=== PATIENT | male | born 1980 | race Hispanic/Latino ===

== ENCOUNTER 2021-10-20 05:46 | Day surgery (SDC) | payer BC ==
[2021-10-18 13:52] LABS: BASOPHILS % (AUTO) 0.6 % (0.0-5.0); EOSINOPHILS % (AUTO) 2.7 % (0.0-8.0); HEMATOCRIT 43.2 % (42-54); LYMPHOCYTES % (AUTO) 37.6 % (21.0-51.0); MEAN CORPUSCULAR HEMOGLOBIN 30.2 pg (27.0-33.0); MEAN CORPUSCULAR VOLUME 88.9 fL (79-99); MONOCYTES % (AUTO) 8.1 % (3.0-13.0); NEUTROPHILS % (AUTO) 50.8 % (40.0-77.0); PLATELET COUNT (AUTO) 234 K/uL (130-400); RED BLOOD CELL COUNT(AUTO) 4.86 MIL/uL (4.50-6.20); RED CELL DISTRIBUTION WIDTH 13.4 % (11.0-15.5)
[2021-10-18 14:08] LABS: POTASSIUM 3.4 mmol/L (3.5-5.1)
[2021-10-18 14:09] LABS: PROTHROMBIN TIME 10.9 SEC (9.6-11.6)
[2021-10-18 14:10] LABS: PARTIAL THROMBOPLASTIN TIME 29.4 SEC (26.3-35.5)
[2021-10-19 09:44] VITALS: BP 117/67
[2021-10-20] VITALS (18 sets, daily range): BP systolic 115–138; BP diastolic 65–95
[~2021-10-20] VITALS: Ht 175.3 cm; Wt 105.9 kg
[~2021-10-20 05:46] MED LIST: MULT200T12 PO; TESTOSTERONE IL; VITAMIN D PO
[2021-10-20] MEDS ORDERED: LACTATED RINGERS 1000ML 1,000 ML IV ONE (06:37)
[2021-10-20] MEDS: CEFAZOLIN SODIUM 1 GM VIAL ONE ×2 (07:02→07:55)
[2021-10-20] MEDS ORDERED: FAMOTIDINE 20MG VIAL IV ONE (07:05)
[2021-10-20] MEDS ORDERED: HYDROMORPHONE 1 MG INJ ONE ×2 (07:05→12:44)
[2021-10-20] MEDS ORDERED: MIDAZOLAM HCL 1 MG/ML 2ML VIAL ONE (07:10)
[2021-10-20] MEDS ORDERED: PROPOFOL 10 MG/ML 20ML VIAL IV ONE ×2 (07:10→11:35)
[2021-10-20] MEDS ORDERED: GLYCOPYRROLATE 1 MG/5 ML SYRINGE ONE (07:10)
[2021-10-20] MEDS ORDERED: PHENYLEPHRINE HCL 10 MG/ML 1ML VIAL IV ONE (07:10)
[2021-10-20] MEDS ORDERED: FENTANYL CITRATE PF 50 MCG/1 ML 2ML VIAL ONE ×3 (07:11→12:20)
[2021-10-20] MEDS ORDERED: EPINEPHRINE 1 MG/ML 30ML VIAL IJ ONE (07:15)
[2021-10-20] MEDS ORDERED: ROCURONIUM BROMIDE 10MG/1ML 5ML VL ONE (07:17)
[2021-10-20] MEDS ORDERED: LIDOCAINE 1%-EPI 1:100,000 20 ML VIAL IJ SCH (07:30)
[2021-10-20] MEDS ORDERED: ONDANSETRON 4MG INJ ONE (08:16)
[2021-10-20] MEDS ORDERED: OXYMETAZOLINE HCL SPRAY 15 ML BOTTLE ONE (08:18)
[2021-10-20] MEDS ORDERED: BACITRACIN 28.4 GM OINT TP ONE (08:29)
[2021-10-20] MEDS ORDERED: EPHEDRINE SULFATE 50 MG/ML AMPULE ONE (08:45)
[2021-10-20] MEDS ORDERED: ROCURONIUM 10MG/1ML SYR 10 MG/ML ML ONE (10:06)
[2021-10-20] MEDS ORDERED: NEOSTIGMINE 5MG/5ML SYR IV ONE (11:38)
== END 2021-10-20 14:10 | disposition home or self-care (01) ==
LOC: DAH 05:46
PROVIDERS: ATTEND Otolaryngology Plastic Surgery within the Head & Neck
DX: J34.3 Hypertrophy of nasal turbinates (principal); Z20.822 Contact with and (suspected) exposure to COVID-19; J34.2 Deviated nasal septum; J34.89 Other specified disorders of nose and nasal sinuses; M95.0 Acquired deformity of nose; E78.00 Pure hypercholesterolemia, unspecified; G47.33 Obstructive sleep apnea (adult) (pediatric); Z79.01 Long term (current) use of anticoagulants; Z79.899 Other long term (current) drug therapy; Z98.890 Other specified postprocedural states; Z87.891 Personal history of nicotine dependence
CPT/HCPCS: 20912; 30420; 36415; 71045; 80048; 85025; 85610; 85730; 87635; 93005; A4215; A4221; A4222; A4223; A4600; A4649 ×2; A4663; A4930 ×2; A6260; C9803; J0171; J0690; J1170 ×2; J2250; J2370; J2405; J2704 ×2; J2710; J3010 ×3; J3490 ×4; J7120